=== PATIENT | female | born 1960 | race Caucasian/White ===

== ENCOUNTER 2020-05-17 06:17 | Day surgery (SDC) | payer OTHER ==
[2020-05-16 14:36] VITALS: BMI 27.1
[2020-05-17] MEDS ORDERED: ROCURONIUM BROMIDE 100 MG/10 ML VIAL ONE (07:19)
[2020-05-17] MEDS ORDERED: SUCCINYLCHOLINE CHLORIDE 200 MG/10 ML SYRINGE ONE (07:19)
[2020-05-17] MEDS ORDERED: PROPOFOL 20 ML ONE ×3 (07:19→07:20)
[2020-05-17] MEDS ORDERED: fentaNYL CITRATE 250 MCG/5 ML VIAL ONE (07:19)
[2020-05-17] MEDS ORDERED: MIDAZOLAM HCL 2 MG/2 ML SINGLE DOSE VIAL ONE (07:20)
[2020-05-17] MEDS ORDERED: ONDANSETRON 4 MG/2 ML VIAL IVPUSH PRN (07:48)
[2020-05-17] MEDS ORDERED: oxyCODONE HCL 5 MG TABLET PO PRN (07:48)
[2020-05-17] MEDS ORDERED: LACTATED RINGERS SOLUTION 1,000 ML IV SCH (08:00)
[2020-05-17] MEDS ORDERED: DESFLURANE GAS 240 ML BOTTLE IH ONE (08:35)
[2020-05-17] MEDS ORDERED: ceFAZolin SODIUM 1 GM VIAL ONE (08:35)
[2020-05-17] MEDS ORDERED: ceFAZolin 2 GRAM PREMIX BAG IVPB ONE (08:39)
[2020-05-17] MEDS ORDERED: DEXAMETHASONE SOD PHOSPHATE 4 MG/1 ML VIAL ONE (08:39)
[2020-05-17] MEDS ORDERED: HYDROmorphone HCl 2 MG/ML VIAL ONE (08:41)
[2020-05-17] MEDS ORDERED: EPHEDRINE SULFATE/0.9% NACL/PF 50 MG/10 ML SYRINGE NR ONE (09:36)
--- NOTE | 2020-05-17 12:28 | OP ---
Operative Note - Note: Operative Date: 05/17/20 Pre-Operative Diagnosis: Symptomatic Macromastia-Bilateral Operation: Bilateral Reduction Mammaplasty Post-Operative Diagnosis: Same as Pre-op Surgeon: Eduar Summers Pressurised Container Filler: Catherine Moulton Specimens Removed: Breast Tissue Left: 806 gms, Right: 780 gms Drains & Tubes with Location: Carlos Drains each side Operative Report Dictated: Yes
--- NOTE | 2020-05-17 12:42 | SURG ---
Surgery Eyelet Machine Operator Note Eyelet Machine Operator: Catherine Moulton PA-C Date of Service: 05/17/20 Diagnosis: Symptomatic Macromastia-Bilateral Procedure: Bilateral Reduction Mammaplasty I was present for the entirety of the operative procedure. For further detail, please refer to operative report. Visit type - Case Type Case Type: Scheduled - Emergency Emergency Visit: No - New patient This patient is new to me today: Yes Date on this admission: 05/17/20
[2020-05-17] MEDS ORDERED: METOPROLOL TARTRATE 5 MG/5 ML VIAL ONE (13:04)
[2020-05-17] MEDS ORDERED: LABETALOL HCL 5 MG/1 ML (100MG/20 ML VIAL) IVPUSH ONE ×2 (13:10→13:32)
[2020-05-17 16:27] VITALS: BP 121/76; PULSE 91; TEMP 97.8
--- NOTE | 2020-05-17 19:22 | OP ---
DATE OF OPERATION: 05/17/2020 PREOPERATIVE DIAGNOSIS: Symptomatic macromastia bilaterally. POSTOPERATIVE DIAGNOSIS: Symptomatic macromastia bilaterally. PROCEDURE PERFORMED: Bilateral reduction mammoplasty. SURGEON: Eduar Summers MD. ARTIFICIAL LIMB MAKER: NANDO Nelson. BRIEF HISTORY: The patient has a history of macromastia with associated neck, back, and shoulder pain. She has shoulder grooving and intertrigo, which is frequent, and now presents for reduction mammoplasty. PROCEDURE: The patient was on the operating table in a supine position and general anesthesia was administered by the anesthesiologist. The area of the chest was prepped and draped in usual sterile fashion. The right breast was addressed first. A tourniquet was placed at the base of the right breast, and a 48-mm cookie cutter was used to outline a circular jarad about the right nipple areolar complex. An inferiorly based pedicle was then de-epithelialized, and all skin incisions were made. The pedicle length was unusually long, so the pedicle was shortened by about 6 cm using 3-0 Biosyn suture in a continuous fashion. The resection continued in the lateral, superior, and medial quadrants. The total excision on the right breast was 780 g. The hemostasis was achieved by using electrocautery, and prior to closure, a [place] drain was inserted, exiting the inframammary wound laterally. The wound was then closed in layered fashion, deep tissues were closed with number 3-0 and 4-0 Biosyn suture in an interrupted buried fashion. A deep dermal layer of 4-0 V-Loc 90 was used for skin closure, as were several 5-0 nylon sutures. The V-Loc was left loose around the Carlos drain, to be pulled tighter when the drain is removed postoperatively. The left breast was treated identically, and the total excision on the left breast was 806 g. Good symmetric result was appreciated, and Steri-Strips were placed to further secure the wound. Sterile dressings were applied consisting of Telfa and Combine pads and secured with a surgical bra. The patient was then awoken from anesthesia without any difficulty and taken from the operating room to the recovery room in satisfactory condition having tolerated the procedure well. Sera [id number]
--- NOTE | 2020-05-19 17:28 | PATH ---
Surgical Pathology Report Patient Name: LIZETH ZAPATA Med. Rec. #: [id number] /Age/Gender: 1960 (Age: 59) / F Account: [id number] Location: [facility] SURGICAL Taken: 05/17/2020 Received: 05/17/2020 Reported: 05/19/2020 Physicians: Eduar Summers M.D. Specimen(s) Received A: RIGHT BREAST TISSUE B: LEFT BREAST TISSUE Clinical History Macromastia Final Diagnosis A. BREAST TISSUE, RIGHT, REDUCTION: BENIGN BREAST PARENCHYMA WITH RARE MICROCALCIFICATIONS. SKIN WITHOUT SIGNIFICANT PATHOLOGIC FINDINGS. B. BREAST TISSUE, LEFT, REDUCTION: BENIGN BREAST PARENCHYMA WITH RARE MICROCALCIFICATIONS. SKIN WITHOUT SIGNIFICANT PATHOLOGIC FINDINGS. Electronically Signed Dilcia Suresh M.D. Gross Description A. Received in formalin labeled "right breast tissue," is a 798 g, 34.0 x 13.5 x 4.5 cm unoriented portion of fibroadipose tissue with attached castrejon, unremarkable skin. Sectioning reveals abundant dense, white, focally firm fibrous tissue. No definitive mass is identified. Gang Hemstitching Machine Operator sections are submitted in 5 cassettes. B. Received in formalin labeled "left breast tissue," is an 836 g, 32.0 x 11.5 x 7.0 cm unoriented portion of fibroadipose tissue with attached castrejon, unremarkable skin. Sectioning reveals abundant dense, white, focally firm fibrous tissue. No definitive mass is identified. Gang Hemstitching Machine Operator sections are submitted in 5 cassettes. /05/18/2020 saudi/05/18/2020
== END 2020-05-17 16:10 | disposition home or self-care (01) ==
LOC: JASU-SURG 06:17
PROVIDERS: ATTEND Plastic Surgery
PROC: 0HBV0ZZ Excision of Bilateral Breast, Open Approach (ICD-10-PCS; principal; 2020-05-17 08:00)
DX: N62 Hypertrophy of breast (principal); M54.89 Other dorsalgia; M25.512 Pain in left shoulder; M25.511 Pain in right shoulder; M54.2 Cervicalgia
CPT/HCPCS: 88305-TC; 94760